=== PATIENT | male | born 1970 | race Caucasian/White ===

== ENCOUNTER 2017-06-09 13:59 | Emergency (ER) | payer MEDICARE ==
[~2017-06-09] VITALS: Ht 182.9 cm; Wt 124.7 kg
--- NOTE | ~2017-06-09 | CR127 ---
[facility]. [facility] A Service [facility][1] RADIOLOGY TEXT RESULTS PATIENT: MATHEW VAUGHN LOCATION: SED : 74 UNIT #: [id number] AGE: [address]: SHAHEED ANAND SEX: M ORDER DR: [id number] [place] [address] [id number] MR#: [id number] Acc #: [id number] NAME: MATHEW VAUGHN. : 1970 SEX: M STUDY DATE/TIME: 06/09/2017 UNIT: SED ROOM: STUDY DESCRIPTION: CR Foot Complete Min 3 View Rt Ordering Physician: [facility] Primary Care Physician: Rosana Gregorio A.P.R.N. MEDICAL IMAGING REPORT This report is preliminary unless electronic signature is present. EXAM Right foot 3 views 06/09/2017 1441 hours HISTORY 47-year-old man with cough with swelling and redness of foot 3 days ago with progressive worsening. No known injury. COMPARISON None. FINDINGS AP, lateral and oblique views demonstrate diffuse edema over the foot and over the lower leg. There is no fracture, dislocation or periosteal reaction. No foreign body. IMPRESSION There is diffuse edema over the foot and visualized portions of the lower extremity. There is no fracture or acute bone lesion. Soft tissue calcifications in the plantar fascia noted which appear chronic. Dictated by... Niurka Leonard M.D. THIS IS AN ELECTRONICALLY VERIFIED REPORT Niurka Leonard M.D. at 06/10/2017 6:50 PM SMM/pcl TD: 06/09/2017 21:08 JOB #: [id number] MEDICAL IMAGING REPORT [facility]. [facility] A Service [facility][1] RADIOLOGY TEXT RESULTS PATIENT: MATHEW VAUGHN LOCATION: SED : 74 UNIT #: [id number] AGE: [address]: SHAHEED ANAND SEX: M ORDER DR: Page 1 of 1
[~2017-06-09 13:59] MED LIST: BACTRIM DS TABL1 TA2 PO; FISH OIL 1,0001 CA2 PO; KEFLEX500 M1 PO; PRINIVIL10 MG PO; VIMPAT200 MG PO; ZESTRIL10 MG PO; [UNRECOGNIZED DRUG - OTHER]
[2017-06-09] MEDS ORDERED: AMLODIPINE-OLM1 EAC2 (14:11)
[2017-06-09 14:50] LABS: BASOPHIL# 0.1 X10e3 (0-0.3); BASOPHIL% 1.1 % (0-2.5); EOSINOPHIL# 0.1 X10e3 (0-0.7); EOSINOPHIL% 0.5 % (0.0-7.0); HEMATOCRIT 42.9 % (38.0-50.0); HEMOGLOBIN 14.4 gm/dL (13.0-16.0); LYMPHOCYTE# 1.5 X10e3 (1.0-3.5); LYMPHOCYTE% 11.9 % (17.0-45.0); MEAN CELL VOLUME 85.1 FL (83-96); MEAN CORPUSCULAR HEMOGLOBIN 28.6 PG (28-34); MEAN CORPUSCULAR HGB CONC 33.6 g/dL (30-36); MEAN PLATELET VOLUME 6.9 FL (6.5-11.5); MONOCYTE% 8.2 % (3.0-12.0); NEUTROPHIL# 9.6 X10e3 (1.5-7.1); NEUTROPHIL% 78.3 % (40-75); PLATELET COUNT 203 X10e3 (140-420); RED BLOOD COUNT 5.04 X10e (3.90-5.60); RED CELL DISTRIBUTION WIDTH 13.1 % (11.0-15.5); WHITE BLOOD COUNT 12.2 X10e3 (4.0-10.5)
[2017-06-09 15:06] LABS: DIFF IND NO
[2017-06-09 15:11] LABS: ALBUMIN SERUM 4.2 g/dL (3.5-5.0); BILIRUBIN,TOTAL 3.2 mg/dL (0.2-2.0); CALCIUM SERUM 9.1 mg/dL (8.4-10.2); GLOM FILT RATE Estimated 90.5 mL/min (>60); POTASSIUM 3.7 mmol/L (3.5-5.1)
== END 2017-06-09 15:47 | disposition home or self-care (01) ==
LOC: SED 13:59
PROVIDERS: Physician Assistant
DX: L03.115 Cellulitis of right lower limb (principal); R03.0 Elevated blood-pressure reading, without diagnosis of hypertension; Z79.899 Other long term (current) drug therapy; W57.XXXA Bitten or stung by nonvenomous insect and other nonvenomous arthropods, initial encounter; Y92.009 Unspecified place in unspecified non-institutional (private) residence as the place of occurrence of the external cause
CPT/HCPCS: 36415; 73630; 80053; 85025; 99283